=== PATIENT | male | born 1985 | race Caucasian/White ===

== ENCOUNTER → 2016-10-14 | Outpatient (CLI) | payer SELFPAY ==
--- NOTE | 2016-10-17 10:39 | CR ---
EXAMINATION: Right foot HISTORY: Fracture COMPARISON: 09/05/2016 TECHNIQUE: 3 views FINDINGS/IMPRESSION: There is a stable nondisplaced minimally angulated mid fifth metatarsal fractur e identified, grossly unchanged in position and alignment. The remaining osseous structures and join t spaces appear preserved. Mild degenerative changes at the first MTP joint.
== END ==
LOC: MW.CHPOD 14:18
PROVIDERS: ATTEND Podiatrist Foot & Ankle Surgery
DX: S92.351D Displaced fracture of fifth metatarsal bone, right foot, subsequent encounter for fracture with routine healing (principal)
CPT/HCPCS: 73630-26-RT; 73630-RT

== ENCOUNTER → 2016-11-16 | Outpatient (CLI) | payer SELFPAY ==
--- NOTE | 2016-11-17 09:22 | CR ---
EXAMINATION: Right foot HISTORY: Displaced fracture COMPARISON: 10/14/2016 TECHNIQUE: 3 views FINDINGS/IMPRESSION: There is a healing minimally angulated oblique mid fifth metacarpal fracture id entified. Position and alignment appears grossly unchanged. The remaining visualized osseous structu res and joint spaces appear stable.
== END ==
LOC: MW.CHPOD 15:08
PROVIDERS: ATTEND Podiatrist Foot & Ankle Surgery
DX: S92.351D Displaced fracture of fifth metatarsal bone, right foot, subsequent encounter for fracture with routine healing (principal)
CPT/HCPCS: 73630-26-RT; 73630-RT